=== PATIENT | male | born 1955 | race Caucasian/White ===

== ENCOUNTER → 2021-10-08 | Outpatient (CLI) | payer OTHER | LOC: M WHC 12:54 | PROVIDERS: ATTEND Nurse Practitioner Family | DX: Z13.820 Encounter for screening for osteoporosis (principal) ==

== ENCOUNTER → 2021-11-17 | Outpatient (CLI) | payer OTHER ==
[~2021-11-17] MED LIST: AMLO10TA PO; ATOR40TA75 PO; B-12100010 PO; CORE3.12 PO; ECOT81TA5 PO; ELIQ5TAB PO; FOLI1TAB11 PO; HYDR-3490 PO; LISI40TA4 PO; MESA800T8 PO
== END ==
LOC: M SOG 08:11
PROVIDERS: ATTEND Physician Assistant
DX: S62.611A Displaced fracture of proximal phalanx of left index finger, initial encounter for closed fracture (principal); W18.30XA Fall on same level, unspecified, initial encounter; Y92.009 Unspecified place in unspecified non-institutional (private) residence as the place of occurrence of the external cause

== ENCOUNTER → 2021-11-26 | Outpatient (CLI) | payer OTHER | LOC: M LABSMTC 10:00 | PROVIDERS: ATTEND Anesthesiology | DX: Z01.818 Encounter for other preprocedural examination (principal); Z11.52 Encounter for screening for COVID-19 ==

== ENCOUNTER → 2021-12-08 | Outpatient (CLI) | payer OTHER | LOC: M SOG 09:51 | PROVIDERS: ATTEND Orthopaedic Surgery Hand Surgery | DX: S62.611D Displaced fracture of proximal phalanx of left index finger, subsequent encounter for fracture with routine healing (principal); W18.30XD Fall on same level, unspecified, subsequent encounter ==

== ENCOUNTER → 2022-01-07 | Outpatient (CLI) | payer OTHER ==
[~2022-01-07] MED LIST changes: +ATOR80TA59 PO; +MOLN200C PO
== END ==
LOC: M LABSMTC 10:50
PROVIDERS: ATTEND Anesthesiology
DX: Z20.822 Contact with and (suspected) exposure to COVID-19 (principal)

== ENCOUNTER 2022-01-12 09:56 | Day surgery (SDC) | payer OTHER ==
[~2022-01-12] VITALS: Ht 170.2 cm; Wt 87.6 kg
[~2022-01-12 09:56] MED LIST changes: +LIDOCAINE 1% SDV 5ML VIAL As Ordered ONE; +OFLOXACIN 0.3 % (OCUFLOX) OPTH SOL 5ML OS SCH; +PHENYLEPHRINE 2.5% OPHTH SOL 2ML OS SCH; +PROPARACAINE 0.5% OPHTH SOL 15ML OS ONE; +TROPICAMIDE 1% OPHTH SOLN 2ML OS SCH
[2022-01-12] MEDS ORDERED: INSULIN LISPRO (NovoLOG) PER UNIT SC PRN (11:10)
[2022-01-12] MEDS ORDERED: fentaNYL 100 MCG/2 ML INJECTION As Ordered ONE (11:33)
[2022-01-12] MEDS ORDERED: MIDAZOLAM INJ 2MG/2ML VIAL (J2250 PER 1MG) As Ordered ONE (11:33)
[2022-01-12 12:39] VITALS: BP 116/62
== END 2022-01-12 13:06 | disposition home or self-care (01) ==
LOC: M SDC 09:56
PROVIDERS: ATTEND Ophthalmology
DX: H25.12 Age-related nuclear cataract, left eye (principal); I48.91 Unspecified atrial fibrillation; I10 Essential (primary) hypertension; E78.5 Hyperlipidemia, unspecified; K50.90 Crohn's disease, unspecified, without complications; F17.210 Nicotine dependence, cigarettes, uncomplicated; Z79.01 Long term (current) use of anticoagulants; Z79.899 Other long term (current) drug therapy
CPT/HCPCS: 66984; J2250; J3010; V2632

== ENCOUNTER → 2022-09-24 | Outpatient (CLI) | payer OTHER ==
[~2022-09-24] MED LIST changes: -LIDOCAINE 1% SDV 5ML VIAL As Ordered ONE; -OFLOXACIN 0.3 % (OCUFLOX) OPTH SOL 5ML OS SCH; -PHENYLEPHRINE 2.5% OPHTH SOL 2ML OS SCH; -PROPARACAINE 0.5% OPHTH SOL 15ML OS ONE; -TROPICAMIDE 1% OPHTH SOLN 2ML OS SCH
== END ==
LOC: M RAD 12:36
PROVIDERS: ATTEND Physician Assistant
DX: I65.23 Occlusion and stenosis of bilateral carotid arteries (principal)

== ENCOUNTER 2023-03-01 07:51 | Outpatient (CLI) | payer OTHER ==
[~2023-03-01] VITALS: Ht 170.2 cm; Wt 93.0 kg
[2023-03-01 08:00] VITALS: BP 129/74; TEMP 98.1; O2SAT 98
[2023-03-01] MEDS ORDERED: ACETAMINOPHEN 650MG PO PRIOR TO INFUSION PO ONE (08:00)
[2023-03-01] MEDS ORDERED: inFLIXimab INJECTION 500 MG in NS 200 ML IV ONE (08:00)
[2023-03-01] MEDS ORDERED: NS 1,000 ML IV SCH (08:00)
[2023-03-01] MEDS ORDERED: diphenhydrAMINE 25MG CAP PO ONE (08:40)
[2023-03-01 09:30] VITALS: BP 119/59; O2SAT 98
[2023-03-01 09:45] VITALS: BP 113/57; O2SAT 96
[2023-03-01 10:00] VITALS: BP 101/51; O2SAT 97
[2023-03-01 10:15] VITALS: BP 115/56; O2SAT 97
[2023-03-01 11:50] VITALS: BP 143/71; TEMP 97.9; O2SAT 97
== END 2023-03-01 11:50 ==
LOC: M INFU 07:51
PROVIDERS: ATTEND Internal Medicine Gastroenterology
DX: K50.90 Crohn's disease, unspecified, without complications (principal)
CPT/HCPCS: 96413; 96415; J1745

== ENCOUNTER → 2023-07-14 | Outpatient (CLI) | payer OTHER | LOC: M RAD 06:48 | PROVIDERS: ATTEND Orthopaedic Surgery Hand Surgery | DX: M79.644 Pain in right finger(s) (principal); R93.6 Abnormal findings on diagnostic imaging of limbs ==

== ENCOUNTER 2023-09-24 07:24 | Day surgery (SDC) | payer OTHER ==
[~2023-09-24] VITALS: Ht 172.7 cm; Wt 86.7 kg
[~2023-09-24 07:24] MED LIST changes: +ADVA230A INH; +AMLO1TAB25 PO; +CARV25TA PO; +DSS100CA PO; +HYDR12.55 PO; +VITA100093 PO
[2023-09-24] MEDS: LIDOCAINE W/EPINEPHRINE 1% 20ML VIAL XX ONE (09:30)
[2023-09-24] MEDS: SODIUM BICARBONATE 8.4% INJ 50MEQ 50ML VIAL XX ONE (09:30)
[2023-09-24] MEDS: BACITRACIN OINTMENT 30GM TUBE As Ordered ONE (10:13)
[2023-09-24 10:56] VITALS: BP 159/74; TEMP 98.1; O2SAT 98
== END 2023-09-24 11:18 | disposition home or self-care (01) ==
LOC: M SDC 07:24
PROVIDERS: ATTEND Orthopaedic Surgery Hand Surgery
DX: M65.331 Trigger finger, right middle finger (principal)